=== PATIENT | male | born 1990 | race Caucasian/White ===

== ENCOUNTER 2016-10-07 16:49 | Emergency (ER) | payer OTHER ==
[2016-10-07] MEDS ORDERED: KETOROLAC 60 MG/2 ML VIAL IM STA (17:45)
[2016-10-07] MEDS ORDERED: ACETAMINOPHEN 500 MG TABLET PO STA (17:46)
[2016-10-07] MEDS ORDERED: KETOROLAC 60 MG/2 ML VIAL ONE (17:51)
[2016-10-07] MEDS ORDERED: ACETAMINOPHEN 500 MG TABLET PO ONE (17:51)
== END 2016-10-07 18:46 | disposition home or self-care (01) ==
DX: S39.012A Strain of muscle, fascia and tendon of lower back, initial encounter (principal); X50.0XXA Overexertion from strenuous movement or load, initial encounter
CPT/HCPCS: 72100; 81003; 96372; 99283; A9270

== ENCOUNTER 2016-12-20 18:56 | Emergency (ER) | payer OTHER ==
[2016-12-20 19:05] VITALS: BP 141/91
--- NOTE | 2016-12-20 19:09 | ED Physician Documentation ---
PD HPI BACK INJURY - Stated complaint Stated Complaint: LOWER BACK PX - History obtained from History obtained from: Patient - History of Present Illness Location: Both, Lower Type of injury: Twist (while lifting a pile of plates (so moderately heavy) and felt a pop and pain in lumbar area with pain radiating down to both thighs. No numbness, weakness, nor incontinence.) Where injury occurred: Work Timing - onset: Today Timing - duration: Days Timing - details: Abrupt onset, Still present Quality: Pain, Spasm. No: Throbbing Improved by: Rest Worsened by: Moving, Palpating Associated symptoms: No: Fever, Weakness, Numbness, Incontinent of urine Contributing factors: Work related. No: Prior back surgery Similar symptoms before: No diagnosis (has had some back muscular pains at times ; no chronic process.) Review of Systems Constitutional: denies: Fever, Chills : denies: Dysuria, Frequency, Incontinent Skin: denies: Rash, Lesions Neurologic: denies: Focal weakness, Numbness PD PAST MEDICAL HISTORY - Past Medical History Cardiovascular: None Respiratory: None Neuro: None Endocrine/Autoimmune: None Musculoskeletal: None - Past Surgical History Past Surgical History: No - Present Medications Home Medications: Ambulatory Orders Medication Instructions Recorded Confirmed Ibuprofen 600 mg PO Q6HR PRN #30 tablet 01/21/15 12/20/16 Hydrocodone/Acetaminophen [[place] 1 each PO Q6H PRN #20 tablet 12/20/16 5-325 Tablet] Ibuprofen 800 mg PO TID #20 tablet 12/20/16 Methocarbamol [Robaxin] 500 mg PO Q6H PRN #25 tablet 12/20/16 - Allergies Allergies/Adverse Reactions: Allergies Allergy/AdvReac Type Severity Reaction Status Date / Time No Known Drug Allergies Allergy Verified 12/20/16 19:04 - Social History Does the pt smoke?: No Does the pt drink ETOH?: No Does the pt have substance abuse?: No - Immunizations Immunizations are current?: Yes - POLST Patient has POLST: No PD ED PE NORMAL - Vitals Vital signs reviewed: Yes - General General: Alert and 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, Well developed/nourished, Other (appears in pain and has limited ROM of the back related to pain/stiffness. 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 No rash nor sores. ) - Derm Derm: Normal color, Warm and dry - Extremities Extremities: No tenderness to palpate, Normal ROM s pain - Neuro Neuro: Alert and 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, No motor deficit, No sensory deficit Results - Vitals Vitals: Vital Signs - 24 hr 12/20/16 19:01 Temperature 36.1 C L Heart Rate 89 Respiratory 17 Rate Blood Pressure 141/91 H O2 Saturation 98 Oxygen O2 Source Room air - Rads (name of study) lumbar Radiology: Prelim report reviewed, EMP read contemporaneously (no acute process) PD MEDICAL DECISION MAKING - ED course Complexity details: reviewed results, considered differential, d/w patient Departure - Departure Disposition: 01 Home, Self Care Clinical Impression: Lumbar strain Qualifiers: Encounter type: initial encounter Qualified Code(s): S39.012A - Strain of muscle, fascia and tendon of lower back, initial encounter Condition: Stable Record reviewed to determine appropriate education?: Yes Instructions: ED Sprain Strain Lumbar Follow-Up: [facility] [Provider Group] Prescriptions: Ibuprofen 800 mg PO TID #20 tablet Hydrocodone/Acetaminophen [[place] 5-325 Tablet] 1 each PO Q6H PRN #20 tablet PRN Reason: Pain Methocarbamol [Robaxin] 500 mg PO Q6H PRN #25 tablet PRN Reason: Spasms Comments: Heat and gentle stretching for low back to reduce spasms. Ibuprofen three times daily. Add Methocarbamol for spasms as directed and Tylenol or hydrocodone for pain as needed. Off work for a day, then limited lifting/ bending/ push-pull for 4-5 days. Recheck if not improved over 4-5 days. Your BP was elevated on at least one reading here. This can be resultant from pain and other issues related to being here. Have your primary care recheck your blood pressure in the near future when you are feeling okay to see if it is persistently elevated. Forms: Activity restrictions Discharge Date/Time: 12/20/16 19:54
[2016-12-20] MEDS ORDERED: diazePAM 5 MG TABLET PO STA (19:25)
[2016-12-20] MEDS ORDERED: HYDROcod/ACETAM 5/325 MG TABLET PO STA (19:25)
[2016-12-20] MEDS ORDERED: KETOROLAC 30 MG/ML VIAL IM STA (19:25)
[2016-12-20] MEDS ORDERED: KETOROLAC 30 MG/ML VIAL ONE (19:27)
[2016-12-20] MEDS ORDERED: diazePAM 5 MG TABLET PO ONE (19:28)
[2016-12-20] MEDS ORDERED: HYDROcod/ACETAM 5/325 MG TABLET ONE (19:28)
--- NOTE | 2016-12-20 19:54 | XRAY Preliminary Report ---
Exam: XR Lumbar Spine 2 View IMPRESSION: Normal lumbar spine radiography. [facility] SITE ID: [id number]
--- NOTE | 2016-12-20 19:56 | XRAY Report ---
EXAM: LUMBOSACRAL SPINE RADIOGRAPHY EXAM DATE: 12/20/2016 07:39 PM. CLINICAL HISTORY: Lumbar pain abrupt with lifting today. COMPARISONS: None. TECHNIQUE: 2 views. FINDINGS: Alignment: Normal. No spondylolisthesis or scoliosis. Bones: Five [id number] lumbar vertebral bodies are present. No fractures or bone lesions. Disks: Normal. Disk heights are maintained. Facets: No degenerative changes. Sacroiliac Joints: Unremarkable. Soft Tissues: Normal. The visualized bowel gas pattern is normal. IMPRESSION: Normal lumbar spine radiography. [facility] Referring Provider Line: [phone] SITE ID: [id number]
== END 2016-12-20 19:54 | disposition home or self-care (01) ==
LOC: ED 18:56
DX: S39.012A Strain of muscle, fascia and tendon of lower back, initial encounter (principal); X50.1XXA Overexertion from prolonged static or awkward postures, initial encounter; Y93.89 Activity, other specified; Y92.89 Other specified places as the place of occurrence of the external cause; Y99.0 Civilian activity done for income or pay; R03.0 Elevated blood-pressure reading, without diagnosis of hypertension
CPT/HCPCS: 1040M; 72100; 96372; 99283; 99284; A9270

== ENCOUNTER 2017-04-19 08:08 | Emergency (ER) | payer OTHER ==
[2017-04-19 08:12] VITALS: BP 129/87
[2017-04-19] MEDS: OXYMETAZOLINE NASAL SPRAY NAS STA (08:22)
--- NOTE | 2017-04-19 08:25 | ED Physician Documentation ---
History of Present Illness - Stated complaint Stated Complaint: SORE THROAT - Chief complaint Chief Complaint: Heent - Additonal information Additional information: hx from pt 26 male AD [place] to ER with several days of LEGER myalgias sore throat plugged ear and cough no NVD no travel no known sick contacts tried ricola mucinex and dayquil s relief Review of Systems Constitutional: reports: Myalgias Ears: reports: Ear pain Nose: reports: Congestion Throat: reports: Sore throat Respiratory: reports: Cough GI: denies: Nausea, Vomiting, Diarrhea Neurologic: reports: Headache Endocrine: denies: Easy bruising / bleeding Immunocompromised: denies: Immunocompromised PD PAST MEDICAL HISTORY - Past Medical History Cardiovascular: None Respiratory: None Neuro: None Endocrine/Autoimmune: None Musculoskeletal: None - Past Surgical History Past Surgical History: No - Present Medications Home Medications: Ambulatory Orders Medication Instructions Recorded Confirmed Pseudoephedrine [Sudafed] 30 mg PO Q6H PRN #20 tablet 04/19/17 guaiFENesin/DEXTROMETHORPHAN 10 ml PO Q6H PRN #120 ml 04/19/17 [Robitussin Dm] - Allergies Allergies/Adverse Reactions: Allergies Allergy/AdvReac Type Severity Reaction Status Date / Time No Known Drug Allergies Allergy Verified 12/20/16 19:04 - Social History Does the pt smoke?: No Smoking Status: Never smoker Does the pt drink ETOH?: No Does the pt have substance abuse?: No - Immunizations Immunizations are current?: Yes - POLST Patient has POLST: No PD ED PE NORMAL - Vitals Vital signs reviewed: Yes - General General: Alert and 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 - HEENT HEENT: PERRL. No: Ears normal (yuly dull TM with fluid behind TM but no erythema ) - Neck Neck: Supple, no meningeal sign - Cardiac Cardiac: RRR - Respiratory Respiratory: No respiratory distress, Clear bilaterally - Abdomen Abdomen: Non tender, No organomegaly - Derm Derm: Normal color - Neuro Neuro: Alert and 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 Results - Vitals Vitals: Vital Signs - 24 hr 04/19/17 08:10 Temperature 36.0 C L Heart Rate 69 Respiratory 17 Rate Blood Pressure 129/87 H O2 Saturation 98 Oxygen O2 Source Room air - Labs Labs: Laboratory Tests 04/19/17 04/19/17 08:15 08:20 Influenza A (Rapid) Negative Influenza B (Rapid) Negative Influenza Types A,B Ag - Group A Strep Rapid Negative Departure - Departure Disposition: 01 Home, Self Care Clinical Impression: URI (upper respiratory infection) Qualifiers: URI type: unspecified viral URI Qualified Code(s): J06.9 - Acute upper respiratory infection, unspecified Condition: Good Instructions: ED Upper Resp Infec No Abx Tx Follow-Up: [facility] [Provider Group] Prescriptions: guaiFENesin/DEXTROMETHORPHAN [Robitussin Dm] 10 ml PO Q6H PRN #120 ml PRN Reason: Cough Pseudoephedrine [Sudafed] 30 mg PO Q6H PRN #20 tablet PRN Reason: congestion Comments: The rapid strep test was negative. A more extensive throat culture will also be run and you will be notified if it is positive and you need antibiotics. The influenza test was negative too It looks like this is a viral respiratory infection. That does not make you any less ill and miserable than if it was a bacterial infection like strep throat or pneumonia - but it does mean that antibiotics won't help. I recommend afrin (twice a day for up to 3 days) and sudafed to relieve your congestion, and robitussin DM to loosen the and ease your cough. Tylenol and motrin as needed for fever and body aches. Your Dayquil likely contains many of these medications already so please be careful not to mix and match - either take Dayquil or take what I prescribed Rest and drink plenty of fluids - I wrote you a note for work Forms: Activity restrictions
[2017-04-19] MEDS ORDERED: OXYMETAZOLINE NASAL SPRAY NAS ONE (08:26)
[2017-04-19 08:41] LABS: RAPID STREP SCREEN REAGENT QC YELLOW (YELLOW)
== END 2017-04-19 08:57 | disposition home or self-care (01) ==
LOC: ED 08:08
DX: J06.9 Acute upper respiratory infection, unspecified (principal)
CPT/HCPCS: 87070; 87275; 87276; 87430; 99283

== ENCOUNTER 2017-06-10 08:49 | Emergency (ER) | payer OTHER ==
[2017-06-10] MEDS ORDERED: IBUPROFEN 800 MG TABLET PO STA (10:21)
--- NOTE | 2017-06-10 10:24 | ED Physician Documentation ---
PD HPI BACK PAIN - Stated complaint Stated Complaint: BACK PX - Chief complaint Chief Complaint: Back Pain - History obtained from History obtained from: Patient - History of Present Illness Timing - onset: Yesterday Timing - details: Still present Location: Lower, Right Quality: Pain, Sharp, Similar to prior episodes Associated symptoms: No: Fever, Weakness, Numbness, Incontinent of urine Worsened by: Movement Similar symptoms before: Diagnosis (Back strain) - Additional information Additional information: The patient is a 26-year-old active [employer] male who presents with right mid lower back pain that started yesterday. The pain occasionally radiates down his right leg. He denies abdominal pain, nausea, vomiting, dysuria, or urinary incontinence. He denies fever, numbness, or weakness. He has a history of similar pain occasionally in the past. Review of his medical records reveals that he was seen here 6 months ago with similar symptoms. After 2 months off of his normal workout routine, he restarted working out this week. He denies any recent traumatic injury. Review of Systems Constitutional: denies: Fever Nose: denies: Congestion Throat: denies: Sore throat Cardiac: denies: Chest pain / pressure Respiratory: denies: Dyspnea, Cough GI: denies: Abdominal Pain, Nausea, Vomiting : denies: Dysuria, Incontinent Skin: denies: Rash Musculoskeletal: reports: Back pain. denies: Neck pain, Extremity swelling Neurologic: denies: Focal weakness, Numbness, Headache PD PAST MEDICAL HISTORY - Past Medical History Cardiovascular: None Respiratory: None Neuro: None Endocrine/Autoimmune: None Musculoskeletal: Chronic back pain - Past Surgical History Past Surgical History: No - Present Medications Home Medications: Ambulatory Orders Medication Instructions Recorded Confirmed Cyclobenzaprine [Flexeril] 10 mg PO TID PRN #20 tablet 06/10/17 Ibuprofen 800 mg PO TID PRN #30 tablet 06/10/17 - Allergies Allergies/Adverse Reactions: Allergies Allergy/AdvReac Type Severity Reaction Status Date / Time No Known Drug Allergies Allergy Verified 12/20/16 19:04 - Social History Does the pt smoke?: No Smoking Status: Never smoker Does the pt drink ETOH?: No Does the pt have substance abuse?: No - Immunizations Immunizations are current?: Yes - POLST Patient has POLST: No PD ED PE NORMAL - Vitals Vital signs reviewed: Yes (Mild hypertension initially.) - General General: Alert and 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, Well developed/nourished - HEENT HEENT: Atraumatic - Neck Neck: No bony TTP - Cardiac Cardiac: RRR - Respiratory Respiratory: No respiratory distress - Abdomen Abdomen: Soft, Non tender - Back Back: No CVA TTP, Other (There is tenderness palpation in the right upper para- lumbar musculature. There is no tenderness to palpation along the spinous processes.) - Derm Derm: No rash - Extremities Extremities: No edema, No calf tenderness / cord - Neuro Neuro: Alert and 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, No motor deficit, No sensory deficit Results - Vitals Vitals: Oxygen O2 Source Room air PD MEDICAL DECISION MAKING - ED course Complexity details: reviewed old records, considered differential, d/w patient ED course: The patient's presentation is most consistent with acute exacerbation of recurrent back pain. His presentation does not suggest epidural abscess, spinal stenosis, or cauda equina syndrome. Treatment in the emergency room included administration of ibuprofen 800 mg orally. He is being discharged with prescriptions for ibuprofen and for Flexeril. I discussed with him the expected course of symptoms, symptomatic treatment and outpatient follow-up, as well as potentially worrisome signs or symptoms that should prompt reevaluation in the emergency department. Departure - Departure Disposition: 01 Home, Self Care Clinical Impression: Lumbar strain Qualifiers: Encounter type: initial encounter Qualified Code(s): S39.012A - Strain of muscle, fascia and tendon of lower back, initial encounter Instructions: ED Sprain Strain Lumbar Follow-Up: [facility] [Provider Group] Prescriptions: Cyclobenzaprine [Flexeril] 10 mg PO TID PRN #20 tablet PRN Reason: Spasms Ibuprofen 800 mg PO TID PRN #30 tablet PRN Reason: Pain Comments: Apply ice pack to your lower back intermittently for the next 3 or 4 days. You can use ibuprofen as prescribed, as well as Flexeril as prescribed if needed for pain and muscle spasms. Let pain be your guide to activity level. Follow up with your primary physician within 1 week. Call to schedule an appointment. Return to the emergency department if you develop increasing pain, or otherwise worsening symptoms. Forms: Activity restrictions Discharge Date/Time: 06/10/17 10:47
[2017-06-10] MEDS ORDERED: IBUPROFEN 800 MG TABLET PO ONE (10:29)
[2017-06-10 10:39] VITALS: BP 110/82
== END 2017-06-10 10:47 | disposition home or self-care (01) ==
LOC: ED 08:49
DX: S39.012A Strain of muscle, fascia and tendon of lower back, initial encounter (principal); X50.9XXA Other and unspecified overexertion or strenuous movements or postures, initial encounter
CPT/HCPCS: 99283; A9270

== ENCOUNTER 2017-07-16 08:46 | Emergency (ER) | payer OTHER ==
[2017-07-16 09:00] VITALS: BP 133/86
--- NOTE | 2017-07-16 09:27 | ED Physician Documentation ---
PD HPI URI - Stated complaint Stated Complaint: HEADACHE,THROAT PX - Chief complaint Chief Complaint: Heent - History obtained from History obtained from: Patient - History of Present Illness Timing - onset: How many days ago (2) Timing duration: Days (2) Timing details: Gradual onset, Still present Associated symptoms: Chills, Nasal congestion, Sore throat, Dry cough. No: Fever Contributing factors: Sick contact (at work). No: Travel, Immunocompromised Similar symptoms before: Has not had sx before Recently seen: Not recently seen Review of Systems Constitutional: reports: Chills, Myalgias, Fatigue Nose: reports: Congestion. denies: Rhinorrhea / runny nose, Sinus pressure / pain Throat: reports: Sore throat Cardiac: denies: Chest pain / pressure Respiratory: reports: Cough. denies: Wheezing GI: denies: Abdominal Pain, Nausea, Vomiting, Diarrhea Skin: denies: Rash, Lesions PD PAST MEDICAL HISTORY - Past Medical History Cardiovascular: None Respiratory: None Neuro: None Endocrine/Autoimmune: None Musculoskeletal: Chronic back pain - Past Surgical History Past Surgical History: No HEENT: Other - Present Medications Home Medications: Ambulatory Orders Medication Instructions Recorded Confirmed Cyclobenzaprine [Flexeril] 10 mg PO TID PRN #20 tablet 06/10/17 07/16/17 Ibuprofen 800 mg PO TID PRN #30 tablet 06/10/17 07/16/17 Dexamethasone [Decadron] 4 mg PO DAILY #5 tablet 07/16/17 - Allergies Allergies/Adverse Reactions: Allergies Allergy/AdvReac Type Severity Reaction Status Date / Time No Known Drug Allergies Allergy Verified 12/20/16 19:04 - Social History Does the pt smoke?: Yes Smoking Status: Current every day smoker Does the pt drink ETOH?: No Does the pt have substance abuse?: No - Immunizations Immunizations are current?: Yes - POLST Patient has POLST: No PD ED PE NORMAL - Vitals Vital signs reviewed: Yes - General General: Alert and 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, No acute distress, Well developed/nourished - HEENT HEENT: Ears normal, Pharynx benign - Neck Neck: Supple, no meningeal sign, No adenopathy - Cardiac Cardiac: RRR, No murmur - Respiratory Respiratory: Clear bilaterally - Derm Derm: Normal color, Warm and dry, No rash - Neuro Neuro: Alert and 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, No motor deficit, Normal speech Results - Vitals Vitals: Vital Signs - 24 hr 07/16/17 08:57 Temperature 36.4 C L Heart Rate 84 Respiratory 16 Rate Blood Pressure 133/86 H O2 Saturation 97 Oxygen O2 Source Room air - Labs Labs: Laboratory Tests 07/16/17 07/16/17 09:14 09:25 Influenza A (Rapid) Negative Influenza B (Rapid) Negative Influenza Types A,B Ag - Group A Strep Rapid Negative PD MEDICAL DECISION MAKING - ED course Complexity details: reviewed results, considered differential, d/w patient Departure - Departure Disposition: Home, Self Care Clinical Impression: Upper respiratory infection Qualifiers: URI type: unspecified URI Qualified Code(s): J06.9 - Acute upper respiratory infection, unspecified Condition: Stable Record reviewed to determine appropriate education?: Yes Instructions: ED Upper Resp Infec No Abx Tx Follow-Up: Joss Rodrigues MD [Primary Care Provider] - Prescriptions: Dexamethasone [Decadron] 4 mg PO DAILY #5 tablet Comments: Drink lots of fluids. Rest at home for 1-2 days. Tylenol or ibuprofen if needed for fevers and aches. You could add Decadron steroid anti-inflammatory daily for several days and this may decrease symptoms. It is not necessary in order for you to get better. Recheck if not improving over a few days. Forms: Activity restrictions Discharge Date/Time: 07/16/17 10:32
[2017-07-16] MEDS ORDERED: DEXAMETHASONE 10 MG/ML VIAL PO STA (10:21)
== END 2017-07-16 10:32 | disposition home or self-care (01) ==
LOC: ED 08:46
DX: J06.9 Acute upper respiratory infection, unspecified (principal); F17.200 Nicotine dependence, unspecified, uncomplicated
CPT/HCPCS: 87070; 87275; 87276; 87430; 99283

== ENCOUNTER 2017-10-06 21:11 | Emergency (ER) | payer OTHER ==
[2017-10-06] MEDS ORDERED: DEXAMETHASONE 10 MG/ML VIAL PO STA (22:39)
[2017-10-06] MEDS ORDERED: SODIUM CHLORIDE 0.9% 1,000 ML IV ONE (22:39)
[2017-10-06] MEDS ORDERED: METOCLOPRAMIDE 10 MG/2 ML VIAL IVP STA (22:39)
[2017-10-06] MEDS ORDERED: KETOROLAC 60 MG/2 ML VIAL IVP STA (22:39)
[2017-10-06] MEDS ORDERED: diphenhydrAMINE INJ 50 MG/ML VIAL IVP STA (22:39)
--- NOTE | 2017-10-06 23:54 | ED Physician Documentation ---
PD HPI HEADACHE - Stated complaint Stated Complaint: LEGER/NAUSEA - Chief complaint Chief Complaint: Neuro - History obtained from History obtained from: Patient - History of Present Illness Timing - onset: How many days ago (4) Timing - onset during: Rest Timing - details: Gradual onset, Still present, Intermittant Worst headache ever?: Worst headache ever? (no) Location: Front Quality: Aching, Stabbing. No: Thunderclap Associated symptoms: Nausea. No: Fever, Stiff neck Worsened by: Light, Noise Similar symptoms before: No diagnosis Recently seen: Not recently seen - Additional information Additional information: Patient is a 26 year old male with a history of headaches who is presenting to the emergency department for headache. patient states that it has been going on for the last 4 days. he states that it started behind his left eye and now it behind his right eye with some rhinorrhea. Patient denies any fever or chills but states that he did throw up. Patient states that it started slowly and got progressively worse. Review of Systems Constitutional: denies: Fever, Chills, Myalgias Eyes: reports: Photophobia. denies: Decreased vision Ears: reports: Reviewed and negative Nose: reports: Rhinorrhea / runny nose Throat: reports: Reviewed and negative Cardiac: reports: Reviewed and negative Respiratory: reports: Reviewed and negative GI: reports: Nausea, Vomiting : reports: Reviewed and negative Skin: reports: Reviewed and negative Musculoskeletal: denies: Neck pain, Back pain, Extremity pain Neurologic: reports: Headache. denies: Generalized weakness, Focal weakness, Syncope, LOC Immunocompromised: denies: Immunocompromised PD PAST MEDICAL HISTORY - Past Medical History Past Medical History: Yes Cardiovascular: None Respiratory: None Neuro: Headache/migraine Endocrine/Autoimmune: None Musculoskeletal: Chronic back pain - Past Surgical History Past Surgical History: No HEENT: Other - Present Medications Home Medications: Ambulatory Orders Medication Instructions Recorded Confirmed Ibuprofen 600 mg PO 10/06/17 No Known Home Medications [No 10/06/17 10/06/17 Known Home Medications] - Allergies Allergies/Adverse Reactions: Allergies Allergy/AdvReac Type Severity Reaction Status Date / Time No Known Drug Allergies Allergy Verified 10/06/17 22:35 - Social History Does the pt smoke?: Yes Smoking Status: Current every day smoker Does the pt drink ETOH?: No Does the pt have substance abuse?: No - Immunizations Immunizations are current?: Yes - POLST Patient has POLST: No PD ED PE NORMAL - Vitals Vital signs reviewed: Yes - General General: Alert and 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, No acute distress, Well developed/nourished - HEENT HEENT: Atraumatic, PERRL - Neck Neck: Supple, no meningeal sign - Cardiac Cardiac: RRR - Respiratory Respiratory: No respiratory distress - Abdomen Abdomen: Non distended - Derm Derm: Normal color, Warm and dry - Extremities Extremities: No deformity - Neuro Neuro: 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 and 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, 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 Patient was well appearing and in no distress. Patient was eating and texting. Iv access was gained and patient was treated with fluids, toradol, reglan, benadryl and oxygen. When the fluids were finished patient was re-evaluated. He stated that his pain had resolved. while serious etiologies of his headache were considered they were unlikely in the scenerio. patient required no further work up and was stable for discharge with outpatient follow up. Departure - Departure Disposition: 01 Home, Self Care Clinical Impression: Migraine Condition: Good Instructions: ED Headache Migraine Follow-Up: Joss Rodrigues MD [Primary Care Provider] - Comments: Your symptoms are likely secondary to migraine headache. some of the main triggers is dehydration and not enough sleep. it is important to try to stay well hydrated. You should follow up with your doctor if your symptoms become more frequent or longer duration. Discharge Date/Time: 10/07/17 00:01
[2017-10-07 00:01] VITALS: BP 127/60
== END 2017-10-07 00:01 | disposition home or self-care (01) ==
LOC: ED 21:11
DX: G43.909 Migraine, unspecified, not intractable, without status migrainosus (principal); F17.200 Nicotine dependence, unspecified, uncomplicated
CPT/HCPCS: 96361; 96374; 96375; 99283; 99284; J1200; J2765